=== PATIENT | male | born 1970 | race Caucasian/White ===

== ENCOUNTER 2017-09-25 05:45 | Day surgery (SDC) | payer OTHER, BC ==
[~2017-09-25] VITALS: Ht 175.3 cm; Wt 86.2 kg
[~2017-09-25 05:45] MED LIST: ALLERGY4 MG PO; AMLODIPINE BESYL5 MG PO; METOPROLOL SUC200 MG PO
[2017-09-25] MEDS ORDERED: ALPRAZOLAM1 MG PO (06:07)
--- NOTE | 2017-09-25 08:22 | NUR ---
09/25/17 0822 Caremn Sanchez 0816 PT ARRIVED TO PACU DROWSY ON RA. PT TALKING AND ASLEEP OFF AND ON. VSS. PT REORIENTED TO PACU. PT DENIES PAIN AND NAUSEA.
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
== END 2017-09-25 08:56 | disposition home or self-care (01) ==
LOC: DS 05:45
PROVIDERS: Colon & Rectal Surgery
PROC: 0HC4XZZ Extirpation of Matter from Neck Skin, External Approach (ICD-10-PCS; principal; 2017-09-25 06:45)
DX: S10.95XA Superficial foreign body of unspecified part of neck, initial encounter (principal); I10 Essential (primary) hypertension; E78.5 Hyperlipidemia, unspecified
CPT/HCPCS: 00170; J0690; J1644; J1885; J2250; J2405; J2704; J3010; J7120